=== PATIENT | female | born 1935 | race Hispanic/Latino ===

== ENCOUNTER → 2017-10-01 | Outpatient (CLI) | payer MEDICARE | END | disposition home or self-care (01) | LOC: OIH 11:15 | PROVIDERS: ATTEND Internal Medicine | DX: R07.9 Chest pain, unspecified (principal) | CPT/HCPCS: 71046 ==

== ENCOUNTER → 2018-02-25 | Outpatient (CLI) | payer MEDICARE | END | disposition home or self-care (01) | LOC: RAH 12:50 | PROVIDERS: ATTEND Internal Medicine | DX: I73.9 Peripheral vascular disease, unspecified (principal); I70.90 Unspecified atherosclerosis | CPT/HCPCS: 93925 ==

== ENCOUNTER → 2018-09-09 | Outpatient (CLI) | payer MEDICARE | END | disposition home or self-care (01) | LOC: OIH 08:38 | PROVIDERS: ATTEND Internal Medicine | DX: J20.8 Acute bronchitis due to other specified organisms (principal); J45.21 Mild intermittent asthma with (acute) exacerbation; M47.815 Spondylosis without myelopathy or radiculopathy, thoracolumbar region | CPT/HCPCS: 71046 ==

== ENCOUNTER → 2020-06-21 | Outpatient (CLI) | payer MEDICARE | END | disposition home or self-care (01) | LOC: OIH 15:36 | PROVIDERS: ATTEND Internal Medicine | DX: I10 Essential (primary) hypertension (principal) | CPT/HCPCS: 71046 ==

== ENCOUNTER → 2021-06-16 | Outpatient (CLI) | payer OTHER | END | disposition home or self-care (01) | LOC: OIH 13:32 | PROVIDERS: ATTEND Internal Medicine Cardiovascular Disease | DX: Z13.6 Encounter for screening for cardiovascular disorders (principal); K44.9 Diaphragmatic hernia without obstruction or gangrene | CPT/HCPCS: 75571 ==

== ENCOUNTER → 2022-10-10 | Outpatient (CLI) | payer OTHER | END | disposition home or self-care (01) | LOC: RAH 11:51 | PROVIDERS: ATTEND Internal Medicine | DX: J20.9 Acute bronchitis, unspecified (principal); M47.815 Spondylosis without myelopathy or radiculopathy, thoracolumbar region | CPT/HCPCS: 71046 ==

== ENCOUNTER → 2023-01-29 | Outpatient (CLI) | payer OTHER | END | disposition home or self-care (01) | LOC: RAH 10:39 | PROVIDERS: ATTEND Internal Medicine | DX: Z12.31 Encounter for screening mammogram for malignant neoplasm of breast (principal) | CPT/HCPCS: 77067 ==

== ENCOUNTER → 2023-04-15 | Outpatient (CLI) | payer OTHER ==
[2023-04-15 16:34] LABS: MAGNESIUM 1.7 mg/dL (1.80-2.40); POTASSIUM 3.6 mmol/L (3.5-5.1)
== END | disposition home or self-care (01) ==
LOC: LAB 13:40
PROVIDERS: ATTEND Physician Assistant
DX: I10 Essential (primary) hypertension (principal); I73.9 Peripheral vascular disease, unspecified
CPT/HCPCS: 36415; 80048; 83735; 83880

== ENCOUNTER → 2023-05-16 | Outpatient (CLI) | payer OTHER | END | disposition home or self-care (01) | LOC: SHCH 08:06 | PROVIDERS: ATTEND Internal Medicine Cardiovascular Disease | DX: I11.9 Hypertensive heart disease without heart failure (principal); R06.00 Dyspnea, unspecified | CPT/HCPCS: 93306 ==

== ENCOUNTER → 2023-07-04 | Outpatient (CLI) | payer OTHER | END | disposition home or self-care (01) | LOC: SHCH 13:09 | PROVIDERS: ATTEND Internal Medicine Cardiovascular Disease | DX: I70.8 Atherosclerosis of other arteries (principal); I73.9 Peripheral vascular disease, unspecified | CPT/HCPCS: 93925 ==

== ENCOUNTER → 2023-08-12 | Outpatient (CLI) | payer OTHER | END | disposition home or self-care (01) | LOC: RAH 14:31 | PROVIDERS: ATTEND Internal Medicine | DX: I10 Essential (primary) hypertension (principal); T85.848A Pain due to other internal prosthetic devices, implants and grafts, initial encounter | CPT/HCPCS: 71046 ==

== ENCOUNTER → 2023-08-30 | Outpatient (CLI) | payer OTHER | END | disposition home or self-care (01) | LOC: RAH 11:56 | PROVIDERS: ATTEND Internal Medicine | DX: J44.9 Chronic obstructive pulmonary disease, unspecified (principal) | CPT/HCPCS: 71046 ==

== ENCOUNTER → 2024-02-07 | Outpatient (CLI) | payer OTHER | END | disposition home or self-care (01) | LOC: RAH 11:02 | PROVIDERS: ATTEND Internal Medicine | DX: Z12.31 Encounter for screening mammogram for malignant neoplasm of breast (principal); R92.323 Mammographic fibroglandular density, bilateral breasts | CPT/HCPCS: 77067 ==

== ENCOUNTER 2025-04-08 12:40 | Emergency (ER) | payer OTHER, MEDICAID ==
[~2025-04-08] VITALS: Ht 167.6 cm; Wt 99.8 kg
[~2025-04-08 12:40] MED LIST: AMIT25TA21 PO; AMLO2.5T4 PO; ASPI-1005 PO; ATOR40TA71 PO; BACL10TA PO; CILO100T3 PO; DONE-51 PO; DULO30CA52 PO; ESCI20TA38 PO; MELO-108 PO; METO50TA18 PO
[2025-04-08 12:43] VITALS: TEMP 98
--- NOTE | 2025-04-08 13:29 | NUR ---
PT MOVED INTO ED BED 10 AT THIS TIME.
--- NOTE | 2025-04-08 14:04 | HMCIMG ---
FOREARM 2VWS RT REASON: fall TECHNIQUE: 2 views were obtained. FINDINGS: There is no evidence of acute fracture or dislocation. There is old fracture of the distal radius and upper with deformity. There is ORIF of the distal radius with orthopedic plates as surgical screws in place. There is no joint effusion. The soft tissues appear unremarkable. There is no evidence of a radiopaque foreign body. There is mild osteopenia. IMPRESSION: No acute findings. Status post ORIF of the distal radius and old fracture and deformity of the distal ulnar.
--- NOTE | 2025-04-08 14:18 | HMCIMG ---
Exam: NONCONTRAST CT BRAIN REASON: fall. COMPARISON: None. TECHNIQUE: Images are obtained from vertex to the skull base. The exam was performed without IV contrast. FINDINGS: There is normal appearing brain parenchyma. There are no focal mass lesions. There is is no evidence of intracranial hemorrhage or acute stroke. Ventricles and sulci appear normal. Posterior fossa and brainstem structures are unremarkable. Paranasal sinuses and remaining extracranial soft tissues appear normal as well.There is global atrophy. IMPRESSION: 1. No acute intracranial process CT was performed with one or more following dose reduction techniques: automated exposure control, adjustment of the mA and kv according to patient's size, or use of a iterative reconstruction technique.
[2025-04-08 14:30] VITALS: BP 136/84; PULSE 72; RESP 20; O2SAT 98
--- NOTE | 2025-04-08 14:44 | HMCIMG ---
Exam Type: CT pelvis without contrast Clinical Information: fall Comparison: None available Technique: Routine helical scanning at 5mm collimation through the abdomen and pelvis was performed. Sagittal and coronal reformations were also done. CT Dose Index (CTDI): 18.40 mGy Dose Length Product (DLP): 720 5. total mGy-cm Findings: The visualized pelvic bowel loops are unremarkable. There is mild atherosclerotic change both common iliac and femoral artery with calcified plaque. No free fluid or fluid collections of the pelvis are seen. The pelvic viscera are normal in CT appearance. The perirectal fat planes are clear. The visualized osseous elements are normal for the patient's age. There is a right hip arthroplasty which appears to be anatomical position and is giving off a metallic artifact. IMPRESSION: No acute process seen in the CT of the THE PELVIS WITHOUT CONTRAST.
--- NOTE | 2025-04-08 15:23 | ERN ---
ED Note History of Present Illness Stated Complaint: FALL Chief Complaint: Mechanical Fall Time Seen by MD: 12:44 Dictation: 89-year-old female with mechanical fall patient lost her balance and fell onto her buttocks area causing pain also has not abrasion/contusion to right forearm. No LOC no chest pain or shortness of breath no weakness Allergies: Coded Allergies: No Known Allergies (Unverified Allergy, Unknown, 06/27/24) Home Meds Reported Medications Cilostazol (Cilostazol) 100 Mg Tablet, 100 MG PO HS, TAB 06/27/24 Duloxetine HCl (Duloxetine HCl) 30 Mg Capsule.dr, 30 MG PO DAILY, CAP 06/27/24 Metoprolol Tartrate (Metoprolol Tartrate) 50 Mg Tablet, 50 MG PO DAILY, TAB 06/27/24 Atorvastatin Calcium (Atorvastatin Calcium) 40 Mg Tablet, 40 MG PO HS, TAB 06/27/24 Aspirin (ASPIRIN 81MG CHEW TAB) 81 Mg Tab.chew, 81 MG PO DAILY, TAB.CHEW 06/27/24 Escitalopram Oxalate (Escitalopram Oxalate) 20 Mg Tablet, 20 MG PO DAILY, TAB 06/27/24 Amlodipine Besylate (Amlodipine Besylate) 2.5 Mg Tablet, 2.5 MG PO DAILY, TAB 06/27/24 Meloxicam (Meloxicam) 15 Mg Tablet, 15 MG PO HS, TAB 06/27/24 Amitriptyline HCl (Amitriptyline HCl) 25 Mg Tablet, 25 MG PO HS, TAB 06/27/24 Donepezil HCl (Donepezil HCl) 5 Mg Tab.rapdis, 5 MG PO HS, TAB 06/27/24 Baclofen (Baclofen) 10 Mg Tablet, 10 MG PO HS, TAB 06/27/24 Past Medical History Past Medical History: Anxiety, Dementia, Depression, High Cholesterol, Hypertension Surgical History: Other Surgical History Other: RT HIP REPLACEMENT Review of System Dictation Constitutional: Negative for fever,chills, and weight loss Eyes: Negative for injury, pain,redness, and discharge ENT: Negative for injury,pain or swelling Cardiovascular: Negative for chest pain, palpitations, and edema Respiratory: Negative for shortness of breath, cough, and wheezing, Abdomen/GI: Negative for abdominal pain, nausea, vomiting, diarrhea, and constipation Back: Negative for injury and pain : Negative for injury, bleeding and discharge MS/Extremity: Per HPI Skin: Negative for rash, and discoloration Neuro: Per HPI Psych: Negative for suicide ideation, homicidal ideation, and hallucinations Initial Vital Sign VS Vital Signs Date Time Temp Pulse Resp B/P (MAP) Pulse Ox O2 Delivery O2 Flow Rate FiO2 04/08/25 12:43 98.1 68 20 110/54 98 Room Air 04/08/25 14:30 0 21 Physical Exam Dictation General: awake, alert, NAD Head/Face: Normocephalic, atraumatic Eyes: PERRL, EOMI, vision at baseline ENT: oral cavity clear, TMs clear, no signs of infection Neck: Trachea midline, supple, no nuchal rigidity Cardiovascular: RRR, normal S1/S2, No MRGs, no JVD Respiratory: CTAB, no respiratory distress, No rales or wheezes Abdomen: Soft, non-tender, non-distended, normal bowel sounds, no guarding or rebound. Skin: Warm, dry, normal turgor, no rash MS/Extremity: Pulses equal, no cyanosis, neurovascular intact, FROM Neuro: COAx4, GCS 15, strength 5/5, CN 2-12 intact, normal cerebellar exam, normal gait, Psych: Normal behavior, mood, and affect normal ED Course ED Course Orders Procedure Category Date Status Time Forearm 2vws Rt RAD 04/08/25 Resulted 12:51 Ct Head/Brain W/O CT 04/08/25 Resulted Contrast 12:51 Ct Pelvis W/O Contrast CT 04/08/25 Resulted 12:51 Vital Signs Date Time Temp Pulse Resp B/P (MAP) Pulse Ox O2 Delivery O2 Flow Rate FiO2 04/08/25 14:30 72 20 136/84 98 Room Air* 0 21 04/08/25 12:43 98.1 68 20 110/54 98 Room Air Medical Decision Making MDM MDM: Differential diagnosis: Rationale: Tests considered and ordered secondary to shared decision making include: Previous outside records reviewed: Old ER visits. Risk of complication and/or morbidity or mortality of patient management: None Medications-Per medication reconciliation Need for hospitalization: Patient does not meet criteria for hospitalization. Need for emergency major/minor surgery: No There are no social concerns with this patient. Prescription drug management Prescriptions will include symptomatic care Patient's prior external medical records from other ER visits were reviewed by me as indicated. Prior testing and results from previous visits were reviewed. Prior tests were taken into account with medical decision making and resource utilization, independent historian/historians were used to obtain complete medical history. I independently interpreted the test that were performed, results were reviewed by me and considered findings on radiology if ordered. Medical management and examination interpretation discussions were had by me with other qualified healthcare professionals as indicated for the patient's care. 89-year-old female mechanical fall no fractures or dislocation CTs and x-ray negative DX & DISP Disposition: Discharge Departure Impression: Primary Impression: Fall at home Additional Impression: Contusion of buttock Condition: Stable Referrals: HARISH JONES MD (PCP) STACIE FRANCO MD Apr 08, 2025 15:23
== END 2025-04-08 16:05 | disposition home or self-care (01) ==
LOC: EDH 12:40
DX: S30.0XXA Contusion of lower back and pelvis, initial encounter (principal); E78.00 Pure hypercholesterolemia, unspecified; F03.94 Unspecified dementia, unspecified severity, with anxiety; F32.A Depression, unspecified; I10 Essential (primary) hypertension; Z79.82 Long term (current) use of aspirin; Z79.899 Other long term (current) drug therapy; Z96.641 Presence of right artificial hip joint; W18.39XA Other fall on same level, initial encounter; Y93.89 Activity, other specified; Y92.89 Other specified places as the place of occurrence of the external cause; Y99.8 Other external cause status
CPT/HCPCS: 70450; 72192; 73090; 99284

== ENCOUNTER → 2025-04-15 | Outpatient (CLI) | payer OTHER, MEDICAID ==
--- NOTE | 2025-04-15 16:31 | HMCIMG ---
SACRUM/COCCYX 2+VWS REASON: SACRUM SPRAIN TECHNIQUE: 3 views of the sacrum were obtained. FINDINGS: There is normal appearance of the sacrum and coccyx. There is severe osteopenia. There is disc disease with osteoarthritic changes L5-S1. There are no visible fractures. SI joints appear normal as does the symphysis pubis. Soft tissues appear unremarkable as well. There is a right hip arthroplasty which appears to be anatomical position. IMPRESSION: 1. Severe osteopenia 2. Disc disease at L5-S1 3. No acute fracture or malalignment of the sacrococcygeal spine
--- NOTE | 2025-04-15 16:32 | HMCIMG ---
THORACIC SPINE 2VWS REASON: THORACIC BACK PAIN COMPARISON: None. TECHNIQUE: 3 images were obtained. FINDINGS: There are normal appearing vertebral bodies. Osteopenia of the osseous structure. There are multilevel ventral marginal spurs seen throughout the thoracic spine. Interspace heights are well preserved. There are no visible fractures. Soft tissues appear unremarkable. There is surgical clips in the right upper quadrant from prior cholecystectomy. There is ORIF of the humerus seen on the lateral view with orthopedic plates and screws in place. IMPRESSION: 1. No acute fracture or malalignment 2. Osteopenia 3. Osteoarthritic changes with ventral marginal spurs.
--- NOTE | 2025-04-15 16:36 | HMCIMG ---
EXAM: LUMBAR SPINE 2-3VWS REASON: ACUTE LUMBAR BACK PAIN. COMPARISON: None. TECHNIQUE: 2 views of the lumbar spine were obtained. FINDINGS: There is grade 1 compression fracture of superior endplate of L5 which is amenable for vertebral body augmentation. There are severe osteophytic changes and disc disease at L5-S1.. There are marginal spurs seen throughout the lumbar spine The remaining intravertebral interspace heights are preserved. Alignment is normal. There is osteopenia of the osseous structure.. Soft tissues appear unremarkable. IMPRESSION: 1. Grade 1 compression fracture superior endplate of L5 which is amenable for vertebral body augmentation which can be performed by me. 2. Disc disease at L5-S1 with osteoarthritic changes which is amenable for epidural steroid injection for pain management. 3. Osteopenia of the osseous structure. 4. Marginal spurs seen throughout the lumbar spine suggesting of osteotomy changes.
== END | disposition home or self-care (01) ==
LOC: RAH 13:03
PROVIDERS: ATTEND Internal Medicine
DX: S33.8XXA Sprain of other parts of lumbar spine and pelvis, initial encounter (principal); M48.56XA Collapsed vertebra, not elsewhere classified, lumbar region, initial encounter for fracture; M85.88 Other specified disorders of bone density and structure, other site; M54.50 Low back pain, unspecified; M54.6 Pain in thoracic spine; Z96.89 Presence of other specified functional implants; X58.XXXA Exposure to other specified factors, initial encounter; Y93.89 Activity, other specified; Y92.89 Other specified places as the place of occurrence of the external cause; Y99.8 Other external cause status
CPT/HCPCS: 72070; 72100; 72220